=== PATIENT | female | born 1955 | race Caucasian/White ===

== ENCOUNTER 2018-12-05 08:54 | Day surgery (SDC) | payer OTHER ==
[~2018-12-05] VITALS: Ht 170.2 cm; Wt 126.4 kg
[~2018-12-05 08:54] MED LIST: CETI5 PO; ESTRADIOL SL; ESTRADIOL/TESTOSTERO VAG; MONT10T PO; NASACORT10.8 ML; PROGES SL; TES SL
== END 2018-12-05 11:26 | disposition home or self-care (01) ==
LOC: ORSCSDS 08:54
PROVIDERS: Internal Medicine Gastroenterology
PROC: 0DJD8ZZ Inspection of Lower Intestinal Tract, Via Natural or Artificial Opening Endoscopic (ICD-10-PCS; principal; 2018-12-05 10:15)
DX: K92.1 Melena (principal); K64.8 Other hemorrhoids; K57.30 Diverticulosis of large intestine without perforation or abscess without bleeding; D64.9 Anemia, unspecified; Z79.899 Other long term (current) drug therapy
CPT/HCPCS: J2250; J2704; J7120